=== PATIENT | male | born 1990 ===

== ENCOUNTER 2022-01-15 16:44 | Emergency (ER) | payer BC ==
[2022-01-15] MEDS ORDERED: Diphtheria,Pertussis(Acell),Tetanus Vaccine 0.5 ML Syringe IM ONE (16:54)
[2022-01-15] MEDS ORDERED: Lidocaine 1% with EPINEPHrine 1:100,000 10 ML MDV INJECT ONE (16:54)
[2022-01-15] MEDS ORDERED: Bacitracin Oint 1 GM U/D Packet TOP ONE (17:23)
== END 2022-01-15 17:40 | disposition home or self-care (01) ==
LOC: MW.ED 16:44
DX: S61.011A Laceration without foreign body of right thumb without damage to nail, initial encounter (principal); Z23 Encounter for immunization; W23.1XXA Caught, crushed, jammed, or pinched between stationary objects, initial encounter
CPT/HCPCS: 12001; 90471; 90715; 99282-25